=== PATIENT | male | born 1970 | race Caucasian/White ===

== ENCOUNTER 2019-10-10 11:37 | Day surgery (SDC) | payer OTHER ==
[~2019-10-10] VITALS: Ht 177.8 cm; Wt 150.0 kg
[2019-10-10] MEDS ORDERED: BAYER CHEWABLE81 MG PO (13:03)
[2019-10-10] MEDS ORDERED: LISINOPRIL-HCT1 EAC8 PO (13:03)
[2019-10-10 13:10] VITALS: BP 114/63; Ht 177.8 cm; Wt 150.0 kg
--- NOTE | 2019-10-10 17:23 | NUR ---
DC INSTRUCTIONS GIVEN TO PT/FAMILY. STATE UNDERSTANDING. DC'D IV CATH FULLY INTACT.
--- NOTE | 2019-10-10 17:32 | NUR ---
PT LEFT UNIT VIA WC AT 1725
--- NOTE | 2019-10-12 14:42 | HP ---
PATIENT: RONEL URIBE MEDICAL RECORD: [id number] ACCOUNT: [id number] LOCATION:[facility] : 70 ADMISSION DATE: 10/10/19 PCP: NHI CHAPIN MD HISTORY AND PHYSICAL EXAMINATION CHIEF COMPLAINT: Rectal bleeding. HISTORY OF PRESENT ILLNESS: The patient has been having rectal bleeding. He states since he first reported the rectal bleeding it actually has improved. No abdominal pain. Minor external hemorrhoidal symptoms. FAMILY HISTORY: No family history of colon cancer. No family history of colon polyps. HOME MEDICATIONS: Lisinopril/hydrochlorothiazide as well as aspirin. ALLERGIES: SULFA. SOCIAL HISTORY: Former smoker. PAST MEDICAL AND SURGICAL HISTORY: Diet-controlled diabetes, hypertension. REVIEW OF SYSTEMS: Negative for CVA or seizures. Negative for angina or myocardial infarction. PHYSICAL EXAMINATION: GENERAL: The patient does not appear acutely ill. He does not appear chronically ill. VITAL SIGNS: Reviewed. EARS: External ears appear normal. EYES: Extraocular movements are intact. NECK: Trachea midline. CHEST: No intercostal retractions. PULMONARY: Nonlabored, no stridor. IMPRESSION: Hematochezia. PLAN: Colonoscopy. TRANSINT:[id number] Voice Confirmation ID: [id number] DOCUMENT ID: [id number] cc: Julio C Rhoades ROBERT MD at 1442 CC: [id number] DICTATION DATE: 10/10/19 1608 PLANT PULLER: 10/10/19 1819 [facility] 10/10/19 [place] [address]
--- NOTE | 2019-10-12 14:45 | OP ---
PATIENT NAME: RONEL URIBE MEDICAL RECORD: [id number] :70 LOCATION:D.OPS ADMISSION DATE: SURGEON: NHI CHAPIN MD DATE OF OPERATION: 10/10/2019 PREOPERATIVE DIAGNOSIS: Hematochezia. POSTOPERATIVE DIAGNOSES: 1. Hematochezia, likely due to internal hemorrhoidal bleeding. 2. Inadequate colonic prep. 3. 1.5 x 0.8 cm semi-pedunculated polyp of the cecum. PROCEDURES: 1. Total colonoscopy to cecum. 2. Hot biopsy forceps polypectomy times 1. SURGEON: Nhi Chapin MD CHIEF CONSOLE OPERATOR: None. BLOOD LOSS: Minimal. ANESTHESIA: IV sedation. COMPLICATIONS: None. The risks, possible complications, and alternatives to the procedure were explained to the patient. He elects to proceed. The discussion specifically included, but was not limited to, bleeding requiring emergency reoperation, infection, endoscopic perforation. ENDOSCOPIC COURSE: The patient was conveyed to endoscopy suite electively on 10/10/2019. IV sedation was induced by the anesthesia staff. The patient was placed in the Burrell position. A digital rectal examination was performed. A colonoscope was inserted through the anus. It was easily advanced to the cecum. The prep was inadequate. I noted 1 polyp and this was removed utilizing the hot biopsy forceps polypectomy technique. I can really only rule out obstructing colonic or rectal masses due to the very poor colonic prep. The pullback was greater than a 10-minute pullback. I irrigated and aspirated extensively. I dragged the folds. I utilized a combination of normal imaging as well as narrow band imaging to try to visualize polypoid tissue. A retroflexed view was obtained in the rectum. I then un-retroflexed the scope and removed it under direct vision. I will see the patient in my office in 2-3 weeks. Due to the inadequate prep and due to the polyp, which certainly is going to be an adenomatous polyp, I will plan for repeat colonoscopy in 1 year. He likely will need a 2-day prep at that time. TRANSINT:[id number] Voice Confirmation ID: [id number] DOCUMENT ID: [id number] cc: Palmira Wang APN-unknown OPERATIVE REPORT [id number] RONEL URIBE ROBERT MD at 1445 CC: [id number] DICTATION DATE: 10/10/19 170 RELIABILITY MANAGER: 10/10/19 2322 [facility] 10/10/19 [place] [id number] [address] [place], [facility]
== END 2019-10-10 17:25 | disposition home or self-care (01) ==
LOC: D.OPS 11:37
PROVIDERS: ATTEND Surgery
DX: K92.1 Melena (principal); D12.0 Benign neoplasm of cecum